=== PATIENT | male | born 1975 | race African-American/Black ===

== ENCOUNTER 2019-11-09 04:14 | Emergency (ER) | payer MEDICAID ==
[~2019-11-09] VITALS: Ht 175.3 cm; Wt 65.8 kg
[2019-11-09 04:30] VITALS: BP 110/75
== END 2019-11-09 05:48 | disposition home or self-care (01) ==
LOC: ER 04:14
DX: B35.4 Tinea corporis (principal)

== ENCOUNTER 2021-08-25 12:22 | Emergency (ER) | payer MEDICAID ==
[~2021-08-25] VITALS: Ht 175.3 cm; Wt 70.3 kg
[2021-08-25 16:50] VITALS: BP 117/76
[2021-08-25] MEDS ORDERED: IBUP800T27 PO (17:19)
== END 2021-08-25 17:22 | disposition home or self-care (01) ==
LOC: ER 12:22
DX: R51.9 Headache, unspecified (principal); G89.29 Other chronic pain

== ENCOUNTER 2022-01-31 09:19 | Emergency (ER) | payer BC, MEDICAID ==
[~2022-01-31] VITALS: Ht 172.7 cm; Wt 66.8 kg
[~2022-01-31 09:19] MED LIST: IBUP800T27 PO
[2022-01-31 12:38] VITALS: BP 126/76
[2022-01-31] MEDS ORDERED: cefTRIAXone SOD 500 MG VL IM ONE (14:00)
[2022-01-31] MEDS ORDERED: AZITHROMYCIN 250 MG TAB PO ONE (14:00)
[2022-01-31] MEDS ORDERED: LIDOCAINE 1% HCL (LOCAL ANESTH.) INJ 20ML MDV ID ONE (14:30)
[2022-01-31 15:40] LABS: Urine Bacteria NONE SEEN /hpf (None Seen); Urine Blood Negative /uL (Negative); Urine Mucus FEW (None Seen); Urine Specific Gravity 1.025 (1.001-1.035); Urine WBC 2 /hpf (0 - 3)
[2022-02-01 08:06] LABS: RPR Non Reactive (Non Reactive)
== END 2022-01-31 15:33 | disposition home or self-care (01) ==
LOC: ER 09:19
DX: L30.9 Dermatitis, unspecified (principal); Z20.2 Contact with and (suspected) exposure to infections with a predominantly sexual mode of transmission
CPT/HCPCS: 81001; 86592; 86703; 87491; 87591; 96372; 99283; J0696; J2001